=== PATIENT | male | born 1955 | race Caucasian/White ===

== ENCOUNTER 2017-09-11 12:50 | Day surgery (SDC) | payer MEDICARE ==
[~2017-09-11] VITALS: Ht 167.6 cm; Wt 82.4 kg
[2017-09-11 13:43] VITALS: Ht 167.6 cm; Wt 82.4 kg
[2017-09-11] MEDS ORDERED: MORPHINE PO (13:57)
[2017-09-11] MEDS ORDERED: HCTZ PO (13:57)
[2017-09-11] MEDS ORDERED: OMEPRAZOLE PO (13:57)
[2017-09-11] MEDS ORDERED: SIMVASTATIN PO (13:57)
[2017-09-11] MEDS ORDERED: NORCO PO (13:57)
[2017-09-11] MEDS ORDERED: PROPOFOL 40 ML ONE (14:08)
[2017-09-11 14:24] VITALS: BP 155/92; PULSE 92; RESP 13
[2017-09-11] MEDS ORDERED: PROPOFOL 20 ML ONE ×3 (14:45)
--- NOTE | 2017-09-11 14:52 | OPPN ---
Date/Time of Note Date/Time of Note DATE: 09/11/17 TIME: 14:50 Operative Report Preoperative Diagnosis Screening Postoperative Diagnosis Colitis and biopsies were taken for histopathology Internal hemorrhoids Operation/Procedure Performed Colonoscopy and biopsy Surgeon see signature line medical services assistant None Anesthesia: MAC Estimated blood loss: none Transfusion Required none Specimen Random colon biopsy Grafts/Implants none Complications none SCOOTER JASSO MD Sep 11, 2017 14:52
--- NOTE | 2017-09-12 03:16 | GILP ---
DATE OF PROCEDURE: PROCEDURE: Colonoscopy and biopsy. SURGEON: Scooter Quigley MD PREOPERATIVE DIAGNOSIS: Screening colonoscopy. POSTOPERATIVE DIAGNOSES: 1. Colonoscopy all the way to the cecum. 2. Colitis and biopsies were taken for histopathology. 3. Normal terminal ileum. 4. Internal hemorrhoids. INDICATION FOR THE PROCEDURE: Mr. Adrian Cortez is a 62-year-old male patient who was schedul ed for a screening colonoscopy. The procedure and possible complications were well explained to the patient. He understood and cons ented to the procedure. Under the influence of anesthesia, the colonoscope was carefully introduced in the rectum and under direct vision, it was advanced all the way to the cecum. FINDINGS: The patient had nonspecific colitis extending all the way to the proximal part of the col on and biopsies were taken for histopathology. He was noted to have internal hemorrhoids. The term inal ileum was normal. He tolerated the procedure very well and there was no complication from the procedure. At the end o f the procedure, he was awake with stable vital signs and he was discharged home to the care of his family. IMPRESSION: Please see postoperative diagnosis. PLAN: 1. Await histopathology report. 2. The timing for the next screening colonoscopy will be determined after reviewing the biopsy repo rt. Dictated By: SCOOTER TAYLOR/PATRICIA Conf#: [id number] DID#: [id number]
== END 2017-09-11 15:35 | disposition home or self-care (01) ==
LOC: GIL 12:50
PROVIDERS: ATTEND Internal Medicine Gastroenterology
DX: Z12.11 Encounter for screening for malignant neoplasm of colon (principal); K52.9 Noninfective gastroenteritis and colitis, unspecified; K64.8 Other hemorrhoids; E78.5 Hyperlipidemia, unspecified; I10 Essential (primary) hypertension
CPT/HCPCS: 88305